=== PATIENT | female | born 1995 | race Caucasian/White ===

== ENCOUNTER 2019-11-02 07:57 | Inpatient (IN) ==
[2019-11-02] MEDS ORDERED: FAMOTIDINE 20 MG/2 ML VIAL IV SCH (08:30)
[2019-11-02] MEDS: LACTATED RINGERS 1,000 ML IV SCH ×2 (08:38→20:36)
[2019-11-02 09:03] LABS: Basophils % 0.2 % (0.0-0.8); Eosinophils % 0.2 % (0.00-10.9); Hematocrit 39.1 VOL% (35.7-47.0); Hemoglobin 12.9 GM/DL (12.0-16.0); Immature Granulocytes % 0.5 %; Immature Granulocytes Absolute 0.05 #; Lymphocytes # 2.1 10*3/uL (1.4-4.0); Lymphocytes % 19.8 % (21.3-54.2); Mean Corpuscular Volume 90.9 FL (87-102); Mean Platelet Volume 10.7 FL (9.6-12.0); Monocytes % 4.7 % (1.7-12.7); Neutrophils % 74.6 % (38.7-73.9); Platelet Count 242 T/CUMM (130-400); Red Cell Distribution Width 13.4 % (9.3-17.3); White Blood Count 10.4 T/CUMM (4-12)
[2019-11-02] MEDS: VANCOMYCIN INJ 1,000 MG in SODIUM CHLORIDE 0.9% 250 ML IV SCH ×2 (10:26→21:05)
[2019-11-02] MEDS ORDERED: OXYTOCIN/LR 20 UNIT/1,000 ML BAG IV SCH (13:10)
[2019-11-02] MEDS ORDERED: FAMOTIDINE 20 MG/2 ML VIAL IV ONE (17:06)
[2019-11-02] MEDS ORDERED: CITRIC ACID/SODIUM CITRATE 30 ML UDCUP PO ONE (17:06)
[2019-11-02] MEDS ORDERED: ePHEDrine 50 MG/ML VIAL IV PRN (17:06)
[2019-11-02] MEDS ORDERED: LACTATED RINGERS 1,000 ML IV ONE (17:06)
[2019-11-02] MEDS ORDERED: diphenhydrAMINE 50 MG/1 ML VIAL IV PRN ×2 (17:07)
[2019-11-02] MEDS ORDERED: hydrOXYzine HCL 25 MG/1 ML VIAL IM PRN (17:07)
[2019-11-02] MEDS ORDERED: NALOXONE 0.4 MG/ML VIAL IV PRN (17:07)
[2019-11-02] MEDS ORDERED: PROMETHAZINE 25 MG/1 ML VIAL IM ONE (17:07)
[2019-11-02] MEDS ORDERED: LACTATED RINGERS 1,000 ML IV SCH ×2 (17:30→23:00)
[2019-11-02] MEDS ORDERED: fentaNYL 2 MCG/ROPIV 0.2% EPID 100 ML EPIDURAL SCH (17:30)
[2019-11-02 19:55] LABS: Apearance,Urine Slightly Hazy (Clear); Bilirubin,Urine Negative (Negative); Blood, Urine Negative (Negative); Glucose,Urine (UA) Negative (Negative); Ketones,Urine 80 mg/dL (Negative); Mucus,Urine Moderate /LPF (Occasional); Nitrite,Urine Negative (Negative); Protein,Urine 30 MG/DL; Squamous Epithelial Cell,Urine Occasional /HPF (0-10); Urine Color Amber (Yellow); Urine Specific Gravity 1.028 (1.001-1.035); Urine Urobilinogen < 2.0 EU/DL (0.2-1.0)
[2019-11-02] MEDS: METHYLDOPA 250 MG TABLET PO SCH (20:43)
[2019-11-02] MEDS ORDERED: BUTORPHANOL 2 MG/ML VIAL IV PRN (20:45)
[2019-11-02] MEDS ORDERED: BUTORPHANOL 2 MG/ML VIAL ONE (20:55)
[2019-11-02] MEDS: ONDANSETRON 4 MG/2 ML VIAL IV PRN (20:57)
[2019-11-02] MEDS ORDERED: miSOPROStoL 200 MCG TABLET ONE (21:09)
[2019-11-02] MEDS ORDERED: OXYTOCIN/LR 20 UNIT/1,000 ML BAG IV ONE ×3 (21:09→22:34)
[2019-11-02] MEDS ORDERED: TRANEXAMIC ACID 1,000 MG/10 ML VIAL ONE (21:09)
[2019-11-02] MEDS ORDERED: METHYLERGONOVINE 0.2 MG/1 ML AMP ONE (21:10)
[2019-11-02] MEDS ORDERED: CARBOPROST TROMETHAMINE 250 MCG/ML AMP IM ONE (21:10)
[2019-11-02] MEDS ORDERED: MORPHINE 10 MG/10 ML VIAL ONE (21:13)
[2019-11-02] MEDS ORDERED: LIDOCAINE MPF 2% /EPI 20 ML VIAL ONE (21:13)
[2019-11-02] MEDS ORDERED: METHYLERGONOVINE 0.2 MG/1 ML AMP IM ONE (21:59)
[2019-11-02 22:19] LABS: Cord Venous Blood HCO3 22.6 MMOL/L; Cord Venous Blood PO2 31.8
[2019-11-02] MEDS ORDERED: ONDANSETRON 4 MG/2 ML VIAL IV PRN (22:34)
[2019-11-02] MEDS ORDERED: ACETAMINOPHEN 325 MG TABLET PO PRN (22:34)
[2019-11-02] MEDS ORDERED: RHO(D) IMMUNE GLOBULIN 300 MCG SYRINGE IM ONE (22:34)
[2019-11-02] MEDS ORDERED: oxyCODONE/ACETAMINOPHEN 5-325 MG TABLET PO PRN (22:36)
[2019-11-02] MEDS ORDERED: MIDAZOLAM 2 MG/2 ML VIAL ONE (22:42)
[2019-11-02] MEDS ORDERED: VANCOMYCIN INJ 1,000 MG in SODIUM CHLORIDE 0.9% 250 ML IV SCH (23:00)
[2019-11-03] MEDS ORDERED: ACETAMINOPHEN 500 MG TABLET PO PRN (01:00)
[2019-11-03] MEDS ORDERED: ACETAMINOPHEN 325 MG/10.15 ML UDCUP PO SCH (01:00)
[2019-11-03] MEDS: KETOROLAC 30 MG/1 ML VIAL IV SCH ×4 (01:19→18:47)
[2019-11-03 05:30] LABS: Basophils % 0.2 % (0.0-0.8); Hematocrit 34.4 VOL% (35.7-47.0); Hemoglobin 11.8 GM/DL (12.0-16.0); Immature Granulocytes % 0.5 %; Immature Granulocytes Absolute 0.06 #; Lymphocytes # 1.7 10*3/uL (1.4-4.0); Lymphocytes % 13.7 % (21.3-54.2); Mean Corpuscular HGB Conc 34.3 GM/DL (32-36); Mean Corpuscular Volume 89.8 FL (87-102); Monocytes % 5.3 % (1.7-12.7); Neutrophils % 80.3 % (38.7-73.9); Platelet Count 216 T/CUMM (130-400); Red Blood Count 3.83 MC/CUMM (3.8-5.5); Red Cell Distribution Width 13.2 % (9.3-17.3); White Blood Count 12.7 T/CUMM (4-12)
[2019-11-03] MEDS: ONDANSETRON 4 MG/2 ML VIAL IV PRN (06:05)
[2019-11-03] MEDS: LACTATED RINGERS 1,000 ML IV SCH (06:09)
[2019-11-03] MEDS ORDERED: SCOPOLAMINE 1.5 MG PATCH TRANSDERM ONE (07:06)
[2019-11-03] MEDS: MULTIVITAMIN (PRENATAL) TABLET PO SCH (08:08)
[2019-11-03] MEDS: SIMETHICONE CHEW 80 MG TABLET PO PRN (08:08)
[2019-11-03] MEDS: DOCUSATE SODIUM 100 MG CAPSULE PO SCH ×2 (08:08→20:27)
[2019-11-03] MEDS: MAGNESIUM HYDROXIDE SUSP 30 ML UDCUP PO PRN ×2 (08:08→20:28)
[2019-11-03] MEDS: IBUPROFEN 800 MG TABLET PO PRN ×2 (08:08→20:33)
[2019-11-03] MEDS: METHYLDOPA 250 MG TABLET PO SCH ×2 (08:12→20:27)
[2019-11-03] MEDS: VANCOMYCIN INJ 1,000 MG in SODIUM CHLORIDE 0.9% 250 ML IV SCH (09:28)
[2019-11-04 08:55] VITALS: BP 113/75
[2019-11-04] MEDS: SIMETHICONE CHEW 80 MG TABLET PO PRN (09:01)
[2019-11-04] MEDS: DOCUSATE SODIUM 100 MG CAPSULE PO SCH (09:01)
[2019-11-04] MEDS: MAGNESIUM HYDROXIDE SUSP 30 ML UDCUP PO PRN (09:01)
[2019-11-04] MEDS: METHYLDOPA 250 MG TABLET PO SCH (09:03)
[2019-11-04] MEDS: MULTIVITAMIN (PRENATAL) TABLET PO SCH (09:03)
== END 2019-11-04 12:40 | disposition home or self-care (01) | DRG 786 ==
LOC: N.LD 07:57 → N.OB 11-03 02:11
PROVIDERS: ADMIT Obstetrics & Gynecology; ATTEND Obstetrics & Gynecology
PROC: LDCSECT (ICD-10-PCS; 2019-11-02 21:30)

== ENCOUNTER 2021-07-26 05:52 | Inpatient (IN) ==
[2021-07-26] MEDS ORDERED: TRANEXAMIC ACID 1,000 MG in SODIUM CHLORIDE 0.9% 100 ML IV PRN (06:00)
[2021-07-26] MEDS ORDERED: OXYTOCIN/LR 20 UNIT/1,000 ML BAG IV ONE ×2 (06:00→08:26)
[2021-07-26] MEDS ORDERED: LACTATED RINGERS 1,000 ML IV SCH ×3 (06:00→08:30)
[2021-07-26] MEDS ORDERED: LACTATED RINGERS 500 ML IV PRN (06:00)
[2021-07-26] MEDS ORDERED: LACTATED RINGERS 250 ML IV ONE (06:00)
[2021-07-26] MEDS ORDERED: CARBOPROST TROMETHAMINE 250 MCG/ML AMP IM PRN (06:00)
[2021-07-26] MEDS ORDERED: miSOPROStoL 200 MCG TABLET RECTAL PRN (06:00)
[2021-07-26] MEDS ORDERED: ONDANSETRON 4 MG/2 ML VIAL IV PRN ×2 (06:00→08:26)
[2021-07-26] MEDS ORDERED: LACTATED RINGERS 1,000 ML IV ONE (06:02)
[2021-07-26] MEDS ORDERED: CITRIC ACID/SODIUM CITRATE 30 ML UDCUP PO ONE (06:02)
[2021-07-26] MEDS ORDERED: LACTATED RINGERS 500 ML IV ONE (06:02)
[2021-07-26] MEDS ORDERED: FAMOTIDINE 20 MG/2 ML VIAL IV ONE (06:02)
[2021-07-26] MEDS ORDERED: GENTAMICIN INJ 400 MG in SODIUM CHLORIDE 0.9% 100 ML IV ONE (06:09)
[2021-07-26 06:31] LABS: Basophils % 0.3 % (0.0-0.8); Eosinophils # 0.1 10*3/uL (0.0-0.87); Eosinophils % 0.9 % (0.00-10.9); Hemoglobin 13.1 GM/DL (12.0-16.0); Immature Granulocytes % 0.9 %; Immature Granulocytes Absolute 0.08 #; Lymphocytes # 2.2 10*3/uL (1.4-4.0); Lymphocytes % 24.5 % (21.3-54.2); Mean Corpuscular HGB Conc 33.6 GM/DL (32-36); Mean Corpuscular Volume 88.8 FL (87-102); Mean Platelet Volume 10.5 FL (9.6-12.0); Monocytes # 0.4 10*3/uL (0.11-0.8); Monocytes % 4.4 % (1.7-12.7); Platelet Count 219 T/CUMM (130-400); Red Blood Count 4.39 MC/CUMM (3.8-5.5); Red Cell Distribution Width 13.4 % (9.3-17.3); White Blood Count 8.9 T/CUMM (4-12)
[2021-07-26] MEDS ORDERED: TRANEXAMIC ACID 1,000 MG/10 ML VIAL ONE (07:03)
[2021-07-26] MEDS ORDERED: OXYTOCIN/LR 0 UNIT/0 ML BAG IV ONE (07:03)
[2021-07-26] MEDS ORDERED: SODIUM CHLORIDE 0.9% 0 ML IV ONE (07:03)
[2021-07-26] MEDS ORDERED: miSOPROStoL 200 MCG TABLET ONE (07:03)
[2021-07-26] MEDS ORDERED: CARBOPROST TROMETHAMINE 250 MCG/ML AMP IM ONE (07:04)
[2021-07-26] MEDS ORDERED: METHYLERGONOVINE 0.2 MG/1 ML AMP ONE (07:04)
[2021-07-26] MEDS ORDERED: PHENYLEPHRINE 1 MG/10 ML SYRINGE IV ONE (07:08)
[2021-07-26] MEDS ORDERED: DEXAMETHASONE 4 MG/1 ML VIAL ONE (07:08)
[2021-07-26] MEDS ORDERED: buprenorphine HCL 0.3 MG/ML VIAL ONE (07:08)
[2021-07-26] MEDS ORDERED: ONDANSETRON 4 MG/2 ML VIAL ONE (07:08)
[2021-07-26] MEDS ORDERED: BUPIVACAINE MPF 0.5% /EPI 30 ML VIAL ONE (07:08)
[2021-07-26] MEDS ORDERED: ACETAMINOPHEN INJ 1,000 MG/100 ML VIAL IV ONE (07:10)
[2021-07-26] MEDS ORDERED: KETOROLAC 30 MG/1 ML VIAL ONE (07:10)
[2021-07-26] MEDS: VANCOMYCIN INJ 1,500 MG in SODIUM CHLORIDE 0.9% 500 ML IV ONE (07:12)
[2021-07-26] MEDS: METHYLERGONOVINE 0.2 MG/1 ML AMP IM PRN (07:50)
[2021-07-26 08:05] LABS: Cord Arterial Blood HCO3 21.9 MMOL/L
[2021-07-26 08:08] LABS: Cord Venous Blood HCO3 23.3 MMOL/L; Cord Venous Blood PCO2 45.5 MMHG; Cord Venous Blood PO2 31.6
[2021-07-26 08:19] LABS: Mucus,Urine Occasional /LPF (Occasional); Squamous Epithelial Cell,Urine Occasional /HPF (0-10)
[2021-07-26 08:20] LABS: Bilirubin,Urine Negative (Negative); Blood, Urine Negative (Negative); Glucose,Urine (UA) Negative (Negative); Ketones,Urine 15 mg/dL (Negative); Nitrite,Urine Negative (Negative); Protein,Urine Negative (Negative); Urine Appearance Clear (Clear); Urine Color Yellow (Yellow); Urine Specific Gravity 1.025 (1.001-1.035); Urine Urobilinogen 0.2 eU/dL (<2.0)
[2021-07-26] MEDS ORDERED: RHO(D) IMMUNE GLOBULIN 300 MCG SYRINGE IM ONE (08:26)
[2021-07-26] MEDS ORDERED: SIMETHICONE CHEW 80 MG TABLET PO PRN (08:26)
[2021-07-26] MEDS ORDERED: MAGNESIUM HYDROXIDE SUSP 30 ML UDCUP PO PRN (08:26)
[2021-07-26] MEDS ORDERED: IBUPROFEN 800 MG TABLET PO PRN (08:26)
[2021-07-26] MEDS ORDERED: ACETAMINOPHEN 325 MG TABLET PO PRN (08:26)
[2021-07-26] MEDS ORDERED: oxyCODONE/ACETAMINOPHEN 5-325 MG TABLET PO PRN (08:50)
[2021-07-26] MEDS: DOCUSATE SODIUM 100 MG CAPSULE PO SCH ×2 (12:20→20:23)
[2021-07-26] MEDS: MULTIVITAMIN (PRENATAL) TABLET PO SCH (12:20)
[2021-07-26] MEDS: ACETAMINOPHEN 500 MG TABLET PO SCH ×2 (14:29→20:21)
[2021-07-26] MEDS: KETOROLAC 30 MG/1 ML VIAL IV SCH ×2 (14:30→20:22)
[2021-07-26 20:25] LABS: Basophils % 0.2 % (0.0-0.8); Eosinophils % 0.1 % (0.00-10.9); Hematocrit 35.4 VOL% (35.7-47.0); Hemoglobin 11.8 GM/DL (12.0-16.0); Immature Granulocytes % 0.6 %; Immature Granulocytes Absolute 0.11 #; Mean Corpuscular HGB Conc 33.3 GM/DL (32-36); Mean Corpuscular Volume 90.5 FL (87-102); Mean Platelet Volume 10.9 FL (9.6-12.0); Monocytes # 0.6 10*3/uL (0.11-0.8); Monocytes % 3.1 % (1.7-12.7); Platelet Count 242 T/CUMM (130-400); Red Blood Count 3.91 MC/CUMM (3.8-5.5); Red Cell Distribution Width 13.3 % (9.3-17.3); White Blood Count 18.2 T/CUMM (4-12)
[2021-07-27] MEDS: KETOROLAC 30 MG/1 ML VIAL IV SCH (02:19)
[2021-07-27] MEDS: ACETAMINOPHEN 500 MG TABLET PO SCH (02:19)
[2021-07-27 05:01] LABS: Basophils # 0.1 10*3/uL (0.0-0.2); Basophils % 0.4 % (0.0-0.8); Eosinophils # 0.1 10*3/uL (0.0-0.87); Eosinophils % 0.6 % (0.00-10.9); Hematocrit 29.8 VOL% (35.7-47.0); Immature Granulocytes % 0.8 %; Immature Granulocytes Absolute 0.11 #; Lymphocytes # 2.8 10*3/uL (1.4-4.0); Lymphocytes % 20.5 % (21.3-54.2); Mean Corpuscular HGB Conc 33.6 GM/DL (32-36); Mean Corpuscular Volume 89.8 FL (87-102); Mean Platelet Volume 10.8 FL (9.6-12.0); Monocytes # 0.8 10*3/uL (0.11-0.8); Monocytes % 5.8 % (1.7-12.7); Neutrophils % 71.9 % (38.7-73.9); Platelet Count 206 T/CUMM (130-400); Red Blood Count 3.32 MC/CUMM (3.8-5.5); Red Cell Distribution Width 13.2 % (9.3-17.3); White Blood Count 13.7 T/CUMM (4-12)
[2021-07-27] MEDS ORDERED: LEVOTHYROXINE 125 MCG TABLET PO SCH (06:30)
[2021-07-27] MEDS ORDERED: VANCOMYCIN INJ 1,500 MG in SODIUM CHLORIDE 0.9% 500 ML IV SCH (07:30)
[2021-07-27] MEDS ORDERED: LABETALOL 200 MG TABLET PO SCH (09:00)
[2021-07-27] MEDS: MULTIVITAMIN (PRENATAL) TABLET PO SCH (11:06)
[2021-07-27] MEDS: DOCUSATE SODIUM 100 MG CAPSULE PO SCH (11:06)
[2021-07-27 11:31] VITALS: BP 114/70
== END 2021-07-27 18:10 | disposition home or self-care (01) | DRG 787 ==
LOC: N.LD 05:52 → N.OB 12:30
PROVIDERS: ADMIT Obstetrics & Gynecology; ATTEND Obstetrics & Gynecology
PROC: LDCSECT (ICD-10-PCS; 2021-07-26 07:30)